=== PATIENT | male | born 1975 | race Caucasian/White ===

== ENCOUNTER 2022-08-19 09:09 | Outpatient (CLI) | payer BC, SELFPAY ==
[2022-08-19 14:35] LABS: Chloride* 100 mmol/L (96-114); Potassium* 4.5 mmol/L (3.6-5.1); Sodium* 138 mmol/L (135-149)
[2022-08-19 14:38] LABS: Blood Urea Nitrogen* 18 mg/dL (5-24); Calcium* 9.7 mg/dL (8.4-10.6); Carbon Dioxide* 26 mmol/L (20-32); Cholesterol* 266 mg/dL (90-199); Creatinine* 0.9 mg/dL (0.5-1.5); Estimated Glomerular Filt Rate 107 ml/min; Glucose* 100 mg/dL (60-115); Triglycerides* 241 mg/dL (40-149)
[2022-08-19 14:39] LABS: HDL Cholesterol* 58 mg/dL (>=40); LDL Cholesterol Calculated 160 mg/dL (<100)
[2022-08-21 01:27] LABS: Testosterone, Adult Male 458 ng/dL (300-890)
== END 2022-08-19 09:10 | disposition home or self-care (01) ==
PROVIDERS: PCP Family Medicine; Visit Provider Family Medicine
DX: R53.1 Weakness (principal); Z13.1 Encounter for screening for diabetes mellitus; Z13.6 Encounter for screening for cardiovascular disorders
CPT/HCPCS: 80048; 80061; 84403

== ENCOUNTER 2025-03-29 09:28 | Outpatient (CLI) | payer BC, SELFPAY ==
--- NOTE | 2025-03-29 10:00 | CRLHL7_ITS ---
For Patients: As a result of the Century Cures Act, medical imaging exams and procedure reports are released immediately into your electronic medical record. You may view this report before your referring provider. If you have questions, please contact your health care provider. Indication: Adrenal nodule Technique: Noncontrast CT abdomen Please note that all CT scans at this facility use dose modulation, iterative reconstruction, and/or weight-based dosing when appropriate to reduce radiation dose to as low as reasonably achievable. Comparison: None available Findings: There is a low-density right adrenal nodule measuring 2.5 cm with Hounsfield units below 0. 3 millimeter nonobstructing stone lower pole left kidney. Normal left adrenal gland. Spleen is unremarkable. Normal pancreas. Liver is unremarkable. Normal gallbladder. No bowel obstruction. No adenopathy. Lung bases clear. Atherosclerotic changes. Impression: 2.5 cm right adrenal adenoma. Please note that all CT scans at this facility use dose modulation, iterative reconstruction, and/or weight-based dosing when appropriate to reduce radiation dose to as low as reasonably achievable. Dictated by Cristopher Griffith MD @ 03/29/2025 10:15:57 AM (Electronically Signed)
== END 2025-03-29 09:29 | disposition home or self-care (01) ==
LOC: CT 09:31
PROVIDERS: PCP Family Medicine; Visit Provider Family Medicine
DX: E27.9 Disorder of adrenal gland, unspecified (principal)
CPT/HCPCS: 74150